=== PATIENT | male | born 1960 | race Two or more races ===

== ENCOUNTER 2019-12-08 20:21 | Emergency (ER) | payer MEDICARE, MEDICAID ==
[~2019-12-08] VITALS: Ht 170.2 cm; Wt 78.5 kg
[2019-12-08 20:35] VITALS: BP 171/103
[2019-12-08] MEDS ORDERED: TETRACAINE HCL 0.5% OPTH(EYE) SOLN 4ML RIGHTEYE ONE (22:08)
[2019-12-08] MEDS ORDERED: FLUORESCEIN SOD 1 MG TEST STRIP LEFTEYE ONE (22:10)
== END 2019-12-08 22:47 | disposition home or self-care (01) ==
LOC: ER 20:21
DX: T15.02XA Foreign body in cornea, left eye, initial encounter (principal); X58.XXXA Exposure to other specified factors, initial encounter; Y93.89 Activity, other specified; Y92.89 Other specified places as the place of occurrence of the external cause; Y99.8 Other external cause status
CPT/HCPCS: 65222